=== PATIENT | female | born 1985 | race Caucasian/White ===

== ENCOUNTER → 2016-04-21 | Outpatient (CLI) | payer BC, OTHER ==
[~2016-04-21] MED LIST: ACET50TA PO; IBUP80TA PO; PRENTAB74 PO; SYNT175T2 PO
== END ==
LOC: M WUC 08:24
PROVIDERS: ATTEND Internal Medicine
DX: E03.9 Hypothyroidism, unspecified (principal)

== ENCOUNTER → 2016-08-15 | Outpatient (CLI) | payer BC, OTHER ==
[2016-08-15 11:50] LABS: BASO % 0.3 % (0.0-1.0); EOS # 0.1 K/mm3 (0.0-0.50); EOS % 2.7 % (0.0-3.0); LARGE UNSTAINED CELL # 0.1 K/mm3 (0.0-0.4); LARGE UNSTAINED CELL % 2.8 % (0.0-4.0); LYMPH # 1.2 K/mm3 (1.5-6.5); LYMPH % 27.3 % (24.0-44.0); MEAN CORPUSCULAR HEMOGLOBIN 28.7 pg (27.0-33.0); MEAN CORPUSCULAR HGB CONC 32.7 g/dl (32.0-36.5); MEAN CORPUSCULAR VOLUME 87.6 fl (80.0-96.0); MONO # 0.4 K/mm3 (0.0-0.8); MONO % 8.4 % (0.0-5.0); NEUTROPHILS # 2.6 K/mm3 (1.8-7.7); NEUTROPHILS % 58.5 % (36.0-66.0); PLATELET COUNT, AUTOMATED 274 k/mm3 (150-450); WHITE BLOOD COUNT 4.4 K/mm3 (4.0-10.0)
[2016-08-15 12:17] LABS: ALBUMIN 3.7 GM/DL (3.2-5.2); ALBUMIN/GLOBULIN RATIO 1.12 (1.00-1.93); ALKALINE PHOSPHATASE 74 U/L (45-117); ALT/SGPT 28 U/L (12-78); ANION GAP 5 MEQ/L (8-16); AST/SGOT 15 U/L (15-37); BILIRUBIN,TOTAL 0.4 MG/DL (0.2-1.0); BLOOD UREA NITROGEN 9 MG/DL (7-18); CARBON DIOXIDE LEVEL 31 MEQ/L (21-32); CHLORIDE LEVEL 103 MEQ/L (98-107); CREATININE FOR GFR 0.67 MG/DL (0.55-1.02); FERRITIN 18 NG/ML (8-252); GLOMERULAR FILTRATION RATE > 60.0 (>60); GLUCOSE, FASTING 72 MG/DL (70-105); PERCENT SATURATION 14.4 % (13.2-37.4); PHOSPHORUS LEVEL 2.3 MG/DL (2.5-4.9); POTASSIUM SERUM 4.5 MEQ/L (3.5-5.1); SODIUM LEVEL 139 MEQ/L (136-145); TOTAL IRON BINDING CAPACITY 305 UG/DL (250-450)
[2016-08-15 12:19] LABS: VITAMIN B12 LEVEL 1007 PG/ML (247-911)
[2016-08-18 10:51] LABS: PRETREATED FOLATE FOR RBCFOL 9.3 NG/ML
== END ==
LOC: M WUC 10:12
PROVIDERS: ATTEND Surgery
DX: K91.2 Postsurgical malabsorption, not elsewhere classified (principal); Z98.84 Bariatric surgery status

== ENCOUNTER → 2016-09-13 | Outpatient (CLI) | payer BC, OTHER ==
[2016-09-13 13:14] LABS: CONTROL LINE HCG INT CTR LINE PRESENT
[2016-09-13 15:43] LABS: HCG, SERUM QUANTITATIVE 1663 MIU/ML
== END ==
LOC: M WUC 09:03
PROVIDERS: ATTEND Family Medicine
DX: Z36 Encounter for antenatal screening of mother (principal); Z3A.00 Weeks of gestation of pregnancy not specified; O24.919 Unspecified diabetes mellitus in pregnancy, unspecified trimester; O99.280 Endocrine, nutritional and metabolic diseases complicating pregnancy, unspecified trimester; E03.9 Hypothyroidism, unspecified

== ENCOUNTER → 2016-10-10 | Outpatient (CLI) | payer BC, OTHER ==
[2016-10-10 20:00] LABS: FREE T4 1.19 NG/DL (0.76-1.46)
[2016-10-10 20:39] LABS: BASO % 0.2 % (0.0-1.0); EOS # 0.1 K/mm3 (0.0-0.50); LARGE UNSTAINED CELL # 0.1 K/mm3 (0.0-0.4); LARGE UNSTAINED CELL % 1.9 % (0.0-4.0); LYMPH # 1.6 K/mm3 (1.5-6.5); LYMPH % 25.4 % (24.0-44.0); MEAN CORPUSCULAR HEMOGLOBIN 28.8 pg (27.0-33.0); MEAN CORPUSCULAR HGB CONC 33.1 g/dl (32.0-36.5); MONO # 0.4 K/mm3 (0.0-0.8); MONO % 6.9 % (0.0-5.0); NEUTROPHILS # 3.8 K/mm3 (1.8-7.7); NEUTROPHILS % 63.6 % (36.0-66.0); PLATELET COUNT, AUTOMATED 251 k/mm3 (150-450); RED CELL DISTRIBUTION WIDTH 13.6 % (11.5-14.5)
[2016-10-11 09:35] LABS: HBsAg Prenatal NEGATIVE (NEGATIVE)
== END ==
LOC: M WUC 16:46
PROVIDERS: ATTEND Specialist
DX: Z36 Encounter for antenatal screening of mother (principal); Z3A.00 Weeks of gestation of pregnancy not specified

== ENCOUNTER → 2016-10-27 | Outpatient (CLI) | payer BC, OTHER ==
[~2016-10-27] MED LIST changes: +LIDOCAINE 2% INJ 100 MG/5 ML SDV (FOR ANES.) As Ordered ONE; +METHYLERGONOVINE MALEATE 0.2 MG/ML VIAL (J2210) As Ordered ONE; +MIDAZOLAM INJ 2 MG/2 ML VIAL (J2250) As Ordered ONE; +ONDANSETRON 4MG/2ML VIAL (J2405) As Ordered ONE; +OXYTOCIN INJ 10 UNITS/ML VIAL (J2590) As Ordered ONE; +PROPOFOL 200 MG/20 ML VIAL As Ordered ONE; +dexameTHASONE 4 MG/ML 1ML VIAL (J1100) As Ordered ONE; +ePHEDrine SULFATE 25 MG/5 ML(5MG/ML) SYRINGE As Ordered ONE; +fentaNYL 100 MCG/2 ML INJECTION (J3010) As Ordered ONE
--- NOTE | 2016-10-27 15:29 | REP ---
FIRST TRIMESTER ULTRASOUND: Real-time sonographic evaluation of the gravid uterus is performed. There is an intrauterine gestational sac which contains a pole, the crown rump length of 39 mm, corresponding to an estimated gestational age of 10 weeks 6 days. No heart motion is seen. The findings are consistent with intrauterine demise. Signed by Pato Carmona MD 10/27/2016 05:14 P
== END ==
LOC: M RAD 14:21
PROVIDERS: ATTEND Advanced Practice Midwife
DX: O36.4XX0 Maternal care for intrauterine death, not applicable or unspecified (principal); Z3A.10 10 weeks gestation of pregnancy

== ENCOUNTER 2016-10-28 06:37 | Day surgery (SDC) | payer BC, OTHER ==
[~2016-10-28] VITALS: Ht 165.1 cm; Wt 68.2 kg
[~2016-10-28 06:37] MED LIST changes: -LIDOCAINE 2% INJ 100 MG/5 ML SDV (FOR ANES.) As Ordered ONE; -METHYLERGONOVINE MALEATE 0.2 MG/ML VIAL (J2210) As Ordered ONE; -MIDAZOLAM INJ 2 MG/2 ML VIAL (J2250) As Ordered ONE; -ONDANSETRON 4MG/2ML VIAL (J2405) As Ordered ONE; -OXYTOCIN INJ 10 UNITS/ML VIAL (J2590) As Ordered ONE; -PROPOFOL 200 MG/20 ML VIAL As Ordered ONE; -dexameTHASONE 4 MG/ML 1ML VIAL (J1100) As Ordered ONE; -ePHEDrine SULFATE 25 MG/5 ML(5MG/ML) SYRINGE As Ordered ONE; -fentaNYL 100 MCG/2 ML INJECTION (J3010) As Ordered ONE
[2016-10-28 07:45] VITALS: BP 106/61
[2016-10-28] MEDS ORDERED: ONDANSETRON 4MG/2ML VIAL (J2405) As Ordered ONE (09:37)
[2016-10-28] MEDS ORDERED: KETOROLAC 30 MG/ML VIAL (J1885) As Ordered ONE (09:50)
[2016-10-28] MEDS ORDERED: fentaNYL 100 MCG/2 ML INJECTION (J3010) IV PRN (10:00)
[2016-10-28] MEDS ORDERED: ONDANSETRON 4MG/2ML VIAL (J2405) IV PRN (10:00)
[2016-10-28] MEDS ORDERED: KETOROLAC 30 MG/ML VIAL (J1885) IV SCH (10:00)
[2016-10-28] MEDS ORDERED: PERCOCET 5MG/325MG TAB PO PRN (10:00)
[2016-10-28] MEDS ORDERED: LR 1,000 ML IV SCH (10:00)
[2016-10-28 10:20] VITALS: BP 98/57
[2016-10-28 10:24] LABS: MEAN CORPUSCULAR HEMOGLOBIN 29.4 pg (27.0-33.0); MEAN CORPUSCULAR HGB CONC 33.6 g/dl (32.0-36.5); MEAN CORPUSCULAR VOLUME 87.7 fl (80.0-96.0); RED CELL DISTRIBUTION WIDTH 13.9 % (11.5-14.5)
[2016-10-28 10:50] VITALS: BP 101/57
[2016-10-28 11:50] VITALS: BP 99/60
[2016-10-28 12:50] VITALS: BP 107/58
--- NOTE | 2016-10-29 07:16 | RO ---
DATE OF PROCEDURE: 10/28/2016 PREPROCEDURE DIAGNOSIS: Intrauterine embryonic demise at 10 weeks 6 days. POSTPROCEDURE DIAGNOSIS: Intrauterine embryonic demise at 10 weeks 6 days. PROCEDURE: Dilation with sharp and suction curettage. SURGEON: Xin Barbosa MD ELECTRONICS TECHNOLOGY DEPARTMENT CHAIR: None. ANESTHESIA: General endotracheal anesthesia. ESTIMATED BLOOD LOSS: 1000 mL. URINE OUTPUT: 50 mL. INTRAVENOUS FLUIDS: 900 mL of lactated Ringer's solution. SPECIMENS: Intrauterine curettings. PREOPERATIVE ANTIBIOTICS: None. OPERATIVE FINDINGS: The patient was sounded to approximately 14 cm. During the procedure, there was large amounts of tissue with brisk bleeding. DESCRIPTION OF PROCEDURE: After informed consent was obtained, written consent was reviewed, the patient was brought to the operating room where general endotracheal anesthesia was obtained. She was then placed in the lithotomy position and was prepped and draped in the normal sterile fashion. A time-out in the operating room was then performed, identifying the patient, procedure to be performed, as well as drug allergies. A bivalve speculum was then placed revealing the cervix. The cervix was then sounded to approximately 14 cm. The cervix was then sequentially dilated using a combination of Hanks dilators as well as Hegar dilators. A #12 uterine curette was then advanced through the cervical os to the level of the fundus. This was attached to suction, suction was deployed and the uterus was curetted in a 360-degree fashion. Large amounts of tissue were obtained. This was repeated approximately six times with larger brisk bleeding at which time the patient was given a combination of 0.2 mg of Methergine IM, as well as 20 units of IV Pitocin. A sharp curette was then advanced through the cervical os to the level of the fundus and the uterus was curetted in a 360-degree fashion. A final two additional passes with the suction curette was then performed, productive only of minimal amounts of blood at this time. Instruments were removed from the patient's vagina, tenaculum was removed from the cervix, Monsel was applied over tenaculum sites for hemostasis. Speculum was then removed. In-and-out catheter was then performed productive of 50 mL of clear urine. The patient was then taken out of the lithotomy position, was awakened from general anesthesia and taken to recovery in stable condition. Counts were correct. MTDD
== END 2016-10-28 13:40 | disposition home or self-care (01) ==
LOC: M SDC 06:37 → M PED 06:50 → M SDC 13:40
PROVIDERS: ATTEND Obstetrics & Gynecology
DX: O02.1 Missed abortion (principal); E03.9 Hypothyroidism, unspecified
CPT/HCPCS: 36415; 59820; 85027; 88305; J1100; J1885; J2210; J2250; J2405; J2590; J3010

== ENCOUNTER → 2017-01-26 | Outpatient (CLI) | payer BC, OTHER ==
[2017-01-26 17:40] LABS: BASO % 0.3 % (0.0-1.0); EOS % 0.4 % (0.0-3.0); IMMATURE GRANULOCYTE % 0.1 % (0-0); LYMPH # 1.1 10^3/uL (1.5-6.5); LYMPH % 15.3 % (24.0-44.0); MEAN CORPUSCULAR HEMOGLOBIN 24.3 pg (27.0-33.0); MEAN CORPUSCULAR HGB CONC 30.3 g/dl (32.0-36.5); MONO # 0.8 10^3/uL (0.0-0.8); MONO % 10.7 % (0.0-5.0); NEUTROPHILS # 5.4 10^3/uL (1.8-7.7); NEUTROPHILS % 73.2 % (36.0-66.0); PLATELET COUNT, AUTOMATED 209 10^3/uL (150-450); RED CELL DISTRIBUTION WIDTH 16.1 % (11.5-14.5); WHITE BLOOD COUNT 7.3 10^3/uL (4.0-10.0)
[2017-01-26 18:27] LABS: ALBUMIN 3.8 GM/DL (3.2-5.2); ALBUMIN/GLOBULIN RATIO 1.19 (1.00-1.93); ALKALINE PHOSPHATASE 84 U/L (45-117); ALT/SGPT 30 U/L (12-78); ANION GAP 7 MEQ/L (8-16); AST/SGOT 17 U/L (7-37); BILIRUBIN,TOTAL 0.5 MG/DL (0.2-1.0); BLOOD UREA NITROGEN 9 MG/DL (7-18); CALCIUM LEVEL 8.9 MG/DL (8.5-10.1); CARBON DIOXIDE LEVEL 31 MEQ/L (21-32); CHLORIDE LEVEL 104 MEQ/L (98-107); CREATININE FOR GFR 0.64 MG/DL (0.55-1.02); FERRITIN 7 NG/ML (8-252); GLOMERULAR FILTRATION RATE > 60.0 (>60); GLUCOSE, FASTING 84 MG/DL (70-105); PERCENT SATURATION 13.2 % (13.2-45.0); PHOSPHORUS LEVEL 3.6 MG/DL (2.5-4.9); POTASSIUM SERUM 3.9 MEQ/L (3.5-5.1); SODIUM LEVEL 142 MEQ/L (136-145); TOTAL IRON BINDING CAPACITY 386 UG/DL (250-450)
[2017-01-29 10:44] LABS: VITAMIN B12 LEVEL 1365 PG/ML (247-911)
[2017-01-30 11:09] LABS: PRETREATED FOLATE FOR RBCFOL 14.6 NG/ML
== END ==
LOC: M WUC 10:14
PROVIDERS: ATTEND Surgery
DX: K91.2 Postsurgical malabsorption, not elsewhere classified (principal); Z98.84 Bariatric surgery status; E55.9 Vitamin D deficiency, unspecified

== ENCOUNTER → 2017-03-22 | Outpatient (CLI) | payer OTHER, BC | LOC: M WUC 15:53 | DX: E03.9 Hypothyroidism, unspecified (principal); D64.9 Anemia, unspecified | CPT/HCPCS: 84443 ==

== ENCOUNTER → 2017-08-27 | Outpatient (CLI) | payer OTHER, BC ==
[2017-08-28 07:26] LABS: HCG, SERUM QUANTITATIVE 154 MIU/ML
== END ==
LOC: M WUC 11:19
DX: Z32.01 Encounter for pregnancy test, result positive (principal)
CPT/HCPCS: 84702

== ENCOUNTER → 2017-08-29 | Outpatient (CLI) | payer OTHER, BC ==
[2017-08-29 15:45] LABS: HCG, SERUM QUANTITATIVE 321 MIU/ML
== END ==
LOC: M WUC 11:22
DX: Z32.01 Encounter for pregnancy test, result positive (principal)

== ENCOUNTER → 2017-09-13 | Outpatient (CLI) | payer OTHER, BC ==
[2017-09-13 19:46] LABS: BASO % 0.5 % (0.0-1.0); EOS # 0.2 10^3/uL (0.0-0.50); EOS % 2.8 % (0.0-3.0); HEMATOCRIT 34.7 % (36.0-47.0); HEMOGLOBIN 11.9 g/dl (12.0-15.5); IMMATURE GRANULOCYTE % 0.2 % (0-3.0); LYMPH # 1.7 10^3/uL (1.5-4.5); LYMPH % 28.8 % (24.0-44.0); MEAN CORPUSCULAR HEMOGLOBIN 29.6 pg (27.0-33.0); MEAN CORPUSCULAR HGB CONC 34.3 g/dl (32.0-36.5); MEAN CORPUSCULAR VOLUME 86.3 fl (80.0-96.0); MONO # 0.7 10^3/uL (0.0-0.8); MONO % 10.8 % (0.0-5.0); NEUTROPHILS # 3.4 10^3/uL (1.8-7.7); NEUTROPHILS % 56.9 % (36.0-66.0); PLATELET COUNT, AUTOMATED 202 10^3/uL (150-450); RED BLOOD COUNT 4.02 10^6/uL (4.00-5.40); RED CELL DISTRIBUTION WIDTH 12.9 % (11.5-14.5)
[2017-09-13 20:01] LABS: FREE T4 1.06 NG/DL (0.76-1.46)
[2017-09-13 22:18] LABS: CHLAMYDIA DNA AMPLIFICATION NEGATIVE (NEGATIVE); GC DNA AMPLIFICATION NEGATIVE (NEGATIVE)
[2017-09-14 09:26] LABS: RUBELLA IgG QUALITATIVE IMMUNE (IMMUNE)
[2017-09-14 09:42] LABS: HBsAg Prenatal NEGATIVE (NEGATIVE)
[2017-09-14 09:55] LABS: HEPATITIS C VIRUS ABY INDEX 0.1 INDEX (<0.8)
[2017-09-14 09:56] LABS: HIV 1&2 SCREEN CENTAUR NEGATIVE (NEGATIVE)
== END ==
LOC: M WUC 17:29
DX: Z34.81 Encounter for supervision of other normal pregnancy, first trimester (principal); Z3A.01 Less than 8 weeks gestation of pregnancy
CPT/HCPCS: 84443

== ENCOUNTER → 2017-10-18 | Outpatient (CLI) | payer OTHER, BC ==
[2017-10-18 15:08] LABS: FREE T4 0.97 NG/DL (0.76-1.46)
== END ==
LOC: M WUC 11:39
DX: Z34.81 Encounter for supervision of other normal pregnancy, first trimester (principal); Z36.89 Encounter for other specified antenatal screening
CPT/HCPCS: 84443

== ENCOUNTER 2017-11-17 20:47 | Emergency (ER) | payer BC, OTHER ==
[2017-11-17 22:58] LABS: CALCIUM OXALATE CRYSTALS RFX SMALL; KETONE, URINE AUTO RFX NEGATIVE (NEGATIVE); NITRITE, URINE AUTO RFX NEGATIVE (NEGATIVE); RBC, URINE AUTO RFX 2 /HPF (0-3); SQUAM EPITHELIAL CELL UR AURFX 6 /HPF (0-6); WBC, URINE AUTO RFX 2 /HPF (0-3)
[2017-11-17 22:59] LABS: LEUKOCYTE ESTERASE UR AUTO RFX TRACE (NEGATIVE)
== END 2017-11-17 22:38 | disposition home or self-care (01) ==
LOC: M ED 20:47
DX: O9A.212 Injury, poisoning and certain other consequences of external causes complicating pregnancy, second trimester (principal); W21.01XA Struck by football, initial encounter; Y92.9 Unspecified place or not applicable; Y93.9 Activity, unspecified; Y99.9 Unspecified external cause status; O99.282 Endocrine, nutritional and metabolic diseases complicating pregnancy, second trimester; Z98.84 Bariatric surgery status; Z79.82 Long term (current) use of aspirin; Z79.899 Other long term (current) drug therapy; Z88.0 Allergy status to penicillin
CPT/HCPCS: 76815

== ENCOUNTER → 2017-11-20 | Outpatient (CLI) | payer OTHER, BC ==
[2017-11-20 17:00] LABS: FREE T4 1.15 NG/DL (0.76-1.46)
== END ==
LOC: M WUC 13:13
DX: Z34.81 Encounter for supervision of other normal pregnancy, first trimester (principal); E03.9 Hypothyroidism, unspecified
CPT/HCPCS: 84443

== ENCOUNTER → 2017-12-07 | Outpatient (CLI) | payer BC, OTHER | LOC: M RAD 11:30 | DX: Z34.82 Encounter for supervision of other normal pregnancy, second trimester (principal); Z36.89 Encounter for other specified antenatal screening; Z3A.19 19 weeks gestation of pregnancy | CPT/HCPCS: 76811 ==

== ENCOUNTER → 2017-12-17 | Outpatient (CLI) | payer OTHER, BC ==
[2017-12-17 14:30] LABS: FREE T4 1.17 NG/DL (0.76-1.46)
== END ==
LOC: M WUC 12:16
DX: O99.281 Endocrine, nutritional and metabolic diseases complicating pregnancy, first trimester (principal)

== ENCOUNTER → 2017-12-24 | Outpatient (CLI) | payer BC, OTHER | LOC: M RAD 17:37 | DX: Z34.82 Encounter for supervision of other normal pregnancy, second trimester (principal); Z36.89 Encounter for other specified antenatal screening; Z3A.22 22 weeks gestation of pregnancy | CPT/HCPCS: 76816 ==

== ENCOUNTER → 2018-01-11 | Outpatient (CLI) | payer BC, OTHER ==
[2018-01-11 13:39] LABS: HEMOGLOBIN 10.7 g/dl (12.0-15.5); MEAN CORPUSCULAR HEMOGLOBIN 31.9 pg (27.0-33.0); MEAN CORPUSCULAR HGB CONC 34.5 g/dl (32.0-36.5); MEAN CORPUSCULAR VOLUME 92.5 fl (80.0-96.0); PLATELET COUNT, AUTOMATED 211 10^3/uL (150-450); RED BLOOD COUNT 3.35 10^6/uL (4.00-5.40); RED CELL DISTRIBUTION WIDTH 13.9 % (11.5-14.5); WHITE BLOOD COUNT 7.1 10^3/uL (4.0-10.0)
[2018-01-11 15:19] LABS: FREE T4 1.07 NG/DL (0.76-1.46); THYROID STIMULATING HORMONE 0.627 uIU/ML (0.358-3.740)
== END ==
LOC: M WUC 12:13
DX: Z34.82 Encounter for supervision of other normal pregnancy, second trimester (principal); Z3A.00 Weeks of gestation of pregnancy not specified
CPT/HCPCS: 84443

== ENCOUNTER → 2018-01-21 | Outpatient (CLI) | payer BC, OTHER | LOC: M RAD 17:39 | DX: O32.1XX0 Maternal care for breech presentation, not applicable or unspecified (principal); Z36.89 Encounter for other specified antenatal screening; Z3A.26 26 weeks gestation of pregnancy | CPT/HCPCS: 76816 ==

== ENCOUNTER → 2018-02-16 | Outpatient (CLI) | payer BC, OTHER ==
[2018-02-16 11:02] LABS: FREE T4 1.11 NG/DL (0.76-1.46)
[2018-02-16 11:02] LABS: THYROID STIMULATING HORMONE 0.607 uIU/ML (0.358-3.740)
== END ==
LOC: M WUC 07:54
DX: O99.282 Endocrine, nutritional and metabolic diseases complicating pregnancy, second trimester (principal)
CPT/HCPCS: 84443

== ENCOUNTER 2018-03-21 10:42 | Inpatient (IN) | payer BC, OTHER ==
[2018-03-21] VITALS (22 sets, daily range): BP systolic 50–117; BP diastolic 32–70
[~2018-03-21] VITALS: Ht 165.1 cm; Wt 90.0 kg
[~2018-03-21 10:42] MED LIST changes: +ASPI81TA85 PO
[2018-03-21] MEDS ORDERED: LACTATED RINGER'S 1000 ML IV STA ×2 (11:22→14:42)
[2018-03-21] MEDS ORDERED: CALC500T36 PO (11:24)
[2018-03-21] MEDS ORDERED: CENTTAB47 PO (11:24)
[2018-03-21] MEDS ORDERED: VITA100072 PO (11:30)
[2018-03-21] MEDS ORDERED: D3400CAP PO (11:30)
[2018-03-21] MEDS ORDERED: CALC600T57 PO (11:30)
[2018-03-21] MEDS ORDERED: FERR325T3 PO ×3 (11:30→11:33)
[2018-03-21 11:56] LABS: PARTIAL THROMBOPLASTIN TIME 26.1 SECONDS (25.4-37.6); PROTHROMBIN TIME 13.2 SECONDS (12.1-14.4)
[2018-03-21] MEDS ORDERED: LR 1,000 ML IV SCH ×3 (12:00→16:15)
[2018-03-21 12:02] LABS: ALBUMIN 2.7 GM/DL (3.2-5.2); ALT/SGPT 21 U/L (12-78); BILIRUBIN,TOTAL 0.3 MG/DL (0.2-1.0); BLOOD UREA NITROGEN 10 MG/DL (7-18); CALCIUM LEVEL 8.2 MG/DL (8.5-10.1); CARBON DIOXIDE LEVEL 25 MEQ/L (21-32); CHLORIDE LEVEL 105 MEQ/L (98-107); CREATININE FOR GFR 0.52 MG/DL (0.55-1.30); GLOMERULAR FILTRATION RATE > 60.0 (>60); GLUCOSE, FASTING 149 MG/DL (70-100); SODIUM LEVEL 138 MEQ/L (136-145); TOTAL PROTEIN 6.2 GM/DL (6.4-8.2)
--- NOTE | 2018-03-21 12:07 | HPE ---
DATE OF ADMISSION: 03/21/2018 CHIEF COMPLAINT: Passing blood and clots. HISTORY OF PRESENT ILLNESS: Reena is a 32-year-old G3, P1-0-1-1 at 34 weeks 3 days estimated gestational age by last menstrual period of 07/23/2017 confirmed by first trimester ultrasound. Her estimated date of confinement is 04/29/2018. She is presenting today complaining of having a large gush of bloody fluid at work at approximately 10:30 a.m. this morning. She was seen in the office prior by Darcy Barrios, certified nurse joy loader, for appointment, and then reports that she was at work when she had her large gush of blood fluid. She states that her gush of blood was also filled with clots. She denies any contractions but states that she is feeling a lot of pressure, as well as some nausea and feeling hot. She is feeling baby move. LABS: The patient is A+, GBS unknown, rubella immune, HIV negative, hepatitis C nonreactive, gonorrhea negative, chlamydia negative, hepatitis B surface antigen negative, VDRL nonreactive. Diabetes screen was not done. She has gained 26 pounds during this . Blood pressures in the office have been ranging from 102-114 systolic over 60-68 diastolic. OB ULTRASOUND: Ultrasound done at bedside showed an anterior and fundal placenta with a blood clot that was inferior to the head, suspicious for placental abruption. Amniotic fluid level was normal and the baby was vertex. PAST OBSTETRICAL HISTORY: 1. In 2013, the patient delivered a male at 40 weeks and 5 via normal spontaneous vaginal delivery weighing 8 pounds, 8 ounces. She received a blood patch 6 weeks later. 2. February 17, 2017, patient had a miscarriage at 10 weeks 5 days estimated gestational age. PAST MEDICAL HISTORY: Hypothyroidism. Vitamin D deficiency. MEDICATIONS: vitamins Levothyroxine on 170 mcg daily PAST SURGICAL HISTORY: Danita n Y gastric bypass in 2016. Tonsillectomy and adenoidectomy, 2017. 2017 dilation and curettage. FAMILY HISTORY: Significant for heart disease, diabetes, breast cancer and hypothyroidism. ALLERGIES: PENICILLIN and AMOXICILLIN. SOCIAL HISTORY: The patient is . Denies tobacco, alcohol or drugs. EXAMINATION: Vitals: Heart rate 77, blood pressure 72/46, repeat was 50/32. Sterile vaginal exam: 2 cm dilated 50% effaced, -3 station. monitor: Category 1 tracing, baseline of 150s with moderate variability, positive back cells, no decelerations. [place]: No contractions. ASSESSMENT/PLAN: 1. Intrauterine (IUP) at 34 weeks 3 days estimated gestational age presenting for possible placental abruption. Admit to labor and delivery. OB ultrasound for VERONICA and placental abruption. Coagulation studies, CBC, and DIC labs ordered, as well as urine toxicology. 2. Group B strep (GBS) unknown. Will need prophylactic penicillin if vaginal delivery is eminent. 3. section if indicated. My faculty preceptor for this patient encounter was physically present during the encounter and was fully available. All aspects of the patient interview, examination, medical decision making process, and medical care plan development were reviewed and approved by the faculty preceptor. The faculty preceptor is aware and concurs with the plan as stated in the body of this note and will attest to such by his/her co-signature. ABDELRAHMAN
[2018-03-21 12:21] LABS: AMPHETAMINES URINE REFLEX NEGATIVE (NEGATIVE); BARBITURATES URINE REFLEX NEGATIVE (NEGATIVE); BENZODIAZEPINES URINE REFLEX NEGATIVE (NEGATIVE); CANNABINOIDS URINE REFLEX NEGATIVE (NEGATIVE); COCAINE METABOLITE URINE REFLE NEGATIVE (NEGATIVE); METHADONE URINE REFLEX NEGATIVE (NEGATIVE); OPIATES URINE REFLEX NEGATIVE (NEGATIVE); PHENCYCLIDINE URINE REFLEX NEGATIVE (NEGATIVE)
[2018-03-21 12:41] LABS: HEMATOCRIT 34.6 % (36.0-47.0); HEMOGLOBIN 11.9 g/dl (12.0-15.5); MEAN CORPUSCULAR HEMOGLOBIN 30.8 pg (27.0-33.0); MEAN CORPUSCULAR HGB CONC 34.4 g/dl (32.0-36.5); MEAN CORPUSCULAR VOLUME 89.6 fl (80.0-96.0); PLATELET COUNT, AUTOMATED 229 10^3/uL (150-450); RED BLOOD COUNT 3.86 10^6/uL (4.00-5.40); WHITE BLOOD COUNT 8.8 10^3/uL (4.0-10.0)
--- NOTE | 2018-03-21 13:42 | REP ---
OBSTETRIC SONOGRAPHY: HISTORY: Placental abruption at the 34 weeks. FINDINGS: Scanning demonstrates a viable single intrauterine gestation in a transverse, head to the maternal left lie. heart rate is recorded at 146 beats per minute. Amniotic fluid is subjectively normal. VERONICA is normal at the 19.0 cm. Biophysical profile score is 8 out of a possible 8. S/D ratio of the umbilical cord artery by Doppler is normal at 2.09. Closed cervical length is 4.8 cm. An anterior placenta is seen. There is no evidence of placenta previa. However, there is a large hematoma representing a placental abruption along the inferior edge of the placenta. This extends along the anterior margin of the uterus to cover the internal cervical os. The cervix is not dilated. The abruption measures 16.8 x 6.8 x 11.5 cm. IMPRESSION: Large anterior placental abruption 16.8 x 6.8 x 11.5 cm. The abruption covers the internal cervical os. Cervix is not dilated. A viable fetus biophysical profile score 8 out of a possible 8. Electronically Signed by Amandeep Johnson MD 03/21/2018 05:06 P
[2018-03-21] MEDS ORDERED: BICITRA 30ML SOLN UDC As Ordered ONE (14:42)
[2018-03-21] MEDS ORDERED: ceFAZolin 2 GM/D5W 50 ML IV BAG (J0690 PER 500MG) As Ordered ONE (14:42)
[2018-03-21] MEDS ORDERED: BICITRA 30ML SOLN UDC PO ONE (15:00)
[2018-03-21] MEDS ORDERED: ONDANSETRON 4MG/2ML VIAL (J2405) IV PRN ×3 (15:05→16:15)
[2018-03-21] MEDS ORDERED: diphenhydrAMINE INJ 50MG/ML VIAL (J1200) IV PRN (15:05)
[2018-03-21] MEDS ORDERED: NALOXONE INJ 0.4 MG/1 ML VIAL (J2310) IV PRN ×2 (15:05)
[2018-03-21] MEDS ORDERED: NALBUPHINE HCL 10 MG/ML AMP (J2300) IV PRN (15:05)
[2018-03-21] MEDS ORDERED: METOCLOPRAMIDE INJ 10MG/2ML VIAL (J2765) IV PRN (15:05)
[2018-03-21] MEDS ORDERED: MORPHINE PRES-FREE INJ 10 MG/10 ML VIAL (J2274) As Ordered ONE (15:09)
[2018-03-21] MEDS ORDERED: ONDANSETRON 4MG/2ML VIAL (J2405) As Ordered ONE (15:09)
[2018-03-21] MEDS ORDERED: OXYTOCIN INJ 10 UNITS/ML VIAL (J2590) As Ordered ONE ×2 (15:09→15:53)
[2018-03-21] MEDS ORDERED: KETOROLAC 60 MG/2 ML VIAL (J1885) As Ordered ONE (15:09)
[2018-03-21] MEDS ORDERED: ePHEDrine SULFATE 25 MG/5 ML(5MG/ML) SYRINGE As Ordered ONE (15:09)
[2018-03-21] MEDS ORDERED: PROPOFOL 200 MG/20 ML VIAL As Ordered ONE (15:30)
[2018-03-21] MEDS ORDERED: fentaNYL 100 MCG/2 ML INJECTION (J3010) As Ordered ONE (15:32)
[2018-03-21 15:47] LABS: CORD GAS ABE A -0.3; CORD GAS O2 SAT A 66.9 %; CORD GAS PCO2 A 43.5 mmHg; CORD GAS PH A 7.378 UNITS; CORD GAS PO2 A 27.1 mmHg; CORD GAS SBC A 23.4 MEQ/L; CORD GAS TCO2 A 26.4 MEQ/L
[2018-03-21 15:50] LABS: CORD GAS ABE V 0.6; CORD GAS O2 SAT V 85.4 %; CORD GAS PCO2 V 35.1 mmHg; CORD GAS PH V 7.452 UNITS; CORD GAS PO2 V 35.6 mmHg; CORD GAS SBC V 24.7 MEQ/L
[2018-03-21] MEDS ORDERED: PERCOCET 5MG/325MG TAB PO PRN (16:00)
[2018-03-21] MEDS ORDERED: RHOGAM 300 MCG (1500 IU) INJ (J2790) IM SCH (16:00)
[2018-03-21] MEDS ORDERED: MEASLES,MUMPS,RUBELLA VACCINE INJ (MMR-II) (90707) SC SCH (16:00)
[2018-03-21] MEDS ORDERED: OXYTOCIN DRIP 30 UNITS in APPROPRIATE DILUENT 1 EA IV SCH (16:00)
[2018-03-21] MEDS ORDERED: fentaNYL 100 MCG/2 ML INJECTION (J3010) IV PRN (16:15)
[2018-03-21] MEDS ORDERED: MORPHINE 10 MG/ML 1ML VIAL (J2270) IV PRN (16:15)
[2018-03-21] MEDS ORDERED: OXYTOCIN 30 UNITS IN 0.9% NaCl 500ML IV BAG (J2590) As Ordered ONE (16:25)
[2018-03-21] MEDS: PRENATAL VITAMINS CHEWABLE TABLET PO SCH (17:30)
[2018-03-21] MEDS ORDERED: MULTIVITAMINS/MINERALS THERAP 1 TAB PO ONE (17:30)
[2018-03-21] MEDS: LR 1,000 ML IV SCH (19:11)
[2018-03-21] MEDS ORDERED: PERC5TAB12 PO (20:25)
[2018-03-21] MEDS: DOCUSATE SODIUM 100 MG CAP PO SCH (20:42)
[2018-03-21] MEDS: KETOROLAC 30 MG/ML VIAL (J1885) IV SCH (20:44)
--- NOTE | 2018-03-21 20:55 | RO ---
DATE OF PROCEDURE: 03/21/2018 PREOPERATIVE DIAGNOSES: 34-3/7 weeks gestation, placental abruption. POSTOPERATIVE DIAGNOSES: 34-3/7 weeks gestation, placental abruption. PROCEDURE: Primary low transverse section. SURGEON: Rajesh Garza MD MACHINE SORTER: Nancy Orellana DO ANESTHESIA: Spinal. ESTIMATED BLOOD LOSS: 700 mL. URINE OUTPUT: 100 mL FINDINGS: 2686 gram, 5 pound 15 ounce male , Apgars 9 and 9. Transverse lie with head on maternal left. Large placental abruption noted, at least 25% of the placenta had detached from the uterus and there was approximately 400 mL of blood clot behind the placenta. The placental abruption was very low down and towards the lower uterine segment. Evidence of a [place] uterus with ecchymosis on the anterior lower uterine segment lower fundus. OPERATIVE SUMMARY: The patient was taken to the operating room where spinal anesthesia was induced. She was prepped and draped in sterile fashion in the supine position. A Costello catheter was placed. A Pfannenstiel skin incision was made with a scalpel and carried through to the fascia. The fascia was nicked and extended. The fascia was dissected off the rectus muscles. The peritoneal cavity was entered. A curvilinear incision was made in the lower uterine segment until a bulge of membranes were noted. A large amount of blood clot extruded from the hysterotomy incision. Membranes were ruptured and clear fluid noted. Baby was rotated from the transverse position to the vertex position and delivered at the vertex. Cord was doubly clamped and cut. The infant was handed off to awaiting fisheries technician. The placenta was expressed. The uterus exteriorized and cleared of clots and debris. Uterine incision was closed with #0 Vicryl in a running locked fashion. A second imbricated layer of #0 Vicryl was placed. The uterus was placed back in the abdominal cavity. The peritoneum was closed with #2-0 Vicryl in a running fashion. The fascia was closed with #0 Vicryl in a running fashion. The deep layer was irrigated and closed with #2-0 chromic. Skin was closed with #4-0 Monocryl subcuticular sutures. Sponge, instrument and needle counts correct.
[2018-03-21] MEDS ORDERED: VITAMIN D 1,000 INTERNATIONAL UNITS TABLET PO SCH (21:00)
[2018-03-21] MEDS: VITAMIN D 1,000 INTERNATIONAL UNITS TABLET PO SCH (21:25)
[2018-03-22 02:00] VITALS: BP 90/54
[2018-03-22] MEDS: KETOROLAC 30 MG/ML VIAL (J1885) IV SCH ×3 (02:30→13:52)
[2018-03-22] MEDS: LR 1,000 ML IV SCH ×2 (05:44→08:00)
[2018-03-22 05:46] VITALS: BP 85/54
[2018-03-22] MEDS: LEVOTHYROXINE 150MCG TABLET (0.15MG) PO SCH (05:48)
[2018-03-22] MEDS: LEVOTHYROXINE 25MCG TABLET (0.025MG) PO SCH (05:48)
--- NOTE | 2018-03-22 05:51 | IPNPDOC ---
Text Note Date of Service The patient was seen on 03/22/18. NOTE /Post-operative Day 1 Status post primary low transverse section Subjective Pain is controlled. Lochia decreasing. Passing flatus. Tolerating a regular diet. Ambulating without assistance. Denies any subjective fever/chills/nausea/headache/visual changes/shortness of breath/chest pain. Bottle feeding. Patient has had some mild dizziness upon standing. BP was 85/54, HR 65. Objective Vitals: Hypotensive, normal heart rate, afebrile, adequate urine output. Heart: regular, rate, and rhythm. no murmurs/gallops/rubs Lungs: clear to auscultation bilaterally, no wheezes/crackles/rales/ronchi Abd: obese, soft, nontender, nondistended, uterine fundus is at the umbilicus and firm. Ext: no significant edema, nontender, negative Tea's bilaterally. Assessment/Plan: /Post-operative Day 1. Hypotensive, afebrile, pain control adequate. -500 cc NS bolus -Routine care -Potential discharge Sunday if normotensive -Routine infectious, fever, pain, and bleeding precautions reviewed VS,Fishbone, I+O VS, Fishbone, I+O Laboratory Tests 03/21/18 11:18 Calcium Level 8.2 L, Aspartate Amino Transf (AST/SGOT) 14, Alanine Aminotransferase (ALT/SGPT) 21, Alkaline Phosphatase 122 H, Total Bilirubin 0.3, Total Protein 6.2 L, Albumin 2.7 L 03/21/18 11:34 Red Blood Count 3.86 L, Mean Corpuscular Volume 89.6, Mean Corpuscular Hemoglo bin 30.8, Mean Corpuscular Hemoglobin Concent 34.4, Red Cell Distribution Width 13.9 Vital Signs Date Time Temp Pulse Resp B/P (MAP) Pulse Ox O2 Delivery O2 Flow Rate FiO2 03/22/18 02:00 99.1 67 18 90/54 (66) 97 I&O- Last 24 Hours up to 6 AM 03/22/18 06:00 Intake Total 5350 ml Output Total 2130 ml Balance 3220 ml GME ATTESTATION GME ATTESTATION My faculty preceptor for this patient encounter was physically present during the encounter and was fully available. All aspects of the patient interview, examination, medical decision making process, and medical care plan development were reviewed and approved by the faculty preceptor. The faculty preceptor is aware and concurs with the plan as stated in the body of this note and will attest to such by his/her cosignature. DANG WEST DO Mar 22, 2018 05:51
[2018-03-22] MEDS ORDERED: NS 500 ML IV ONE (06:00)
[2018-03-22 06:23] VITALS: BP 92/56
[2018-03-22 06:42] LABS: HEMATOCRIT 23.7 % (36.0-47.0); MEAN CORPUSCULAR HEMOGLOBIN 31.1 pg (27.0-33.0); MEAN CORPUSCULAR HGB CONC 34.6 g/dl (32.0-36.5); MEAN CORPUSCULAR VOLUME 89.8 fl (80.0-96.0); PLATELET COUNT, AUTOMATED 160 10^3/uL (150-450); RED BLOOD COUNT 2.64 10^6/uL (4.00-5.40); WHITE BLOOD COUNT 11.7 10^3/uL (4.0-10.0)
[2018-03-22 06:49] LABS: HEMOGLOBIN 8.2 g/dl (12.0-15.5)
[2018-03-22] MEDS: DOCUSATE SODIUM 100 MG CAP PO SCH ×2 (08:48→21:00)
[2018-03-22] MEDS ORDERED: PRENATAL VITAMINS CHEWABLE TABLET PO SCH (09:00)
[2018-03-22] MEDS: CALCIUM CITRATE PO SCH ×2 (10:35→20:54)
[2018-03-22] MEDS: D3 PO SCH ×2 (10:35→20:54)
[2018-03-22] MEDS ORDERED: FERROUS SULFATE 325MG TAB PO SCH (11:00)
[2018-03-22 14:00] VITALS: BP 100/54
[2018-03-22] MEDS: PRENATAL VITAMINS CHEWABLE TABLET PO SCH (17:16)
[2018-03-22] MEDS: MULTIVITAMINS/MINERALS THERAP 1 TAB PO SCH (17:18)
[2018-03-22] MEDS ORDERED: IBUPROFEN 800 MG TAB PO SCH (18:00)
[2018-03-22 18:44] VITALS: BP 111/62
[2018-03-22] MEDS: PERCOCET 5MG/325MG TAB PO PRN (19:17)
[2018-03-22] MEDS: VITAMIN D 1,000 INTERNATIONAL UNITS TABLET PO SCH (20:54)
[2018-03-22] MEDS ORDERED: CYANOCOBALAMIN 500 MCG TAB PO SCH (21:00)
[2018-03-22 22:00] VITALS: BP 97/53
[2018-03-23] MEDS: LEVOTHYROXINE 25MCG TABLET (0.025MG) PO SCH (05:40)
[2018-03-23] MEDS: LEVOTHYROXINE 150MCG TABLET (0.15MG) PO SCH (05:40)
[2018-03-23 05:56] VITALS: BP 113/62
[2018-03-23] MEDS: FERROUS SULFATE 325MG TAB PO SCH (08:44)
[2018-03-23] MEDS: DOCUSATE SODIUM 100 MG CAP PO SCH ×2 (08:47→20:52)
[2018-03-23] MEDS ORDERED: ACETAMINOPHEN 500 MG TAB PO PRN (09:00)
[2018-03-23] MEDS: D3 PO SCH ×2 (10:29→20:52)
[2018-03-23] MEDS: CALCIUM CITRATE PO SCH ×2 (10:29→20:52)
[2018-03-23] MEDS: MULTIVITAMINS/MINERALS THERAP 1 TAB PO SCH (17:24)
[2018-03-23] MEDS: PRENATAL VITAMINS CHEWABLE TABLET PO SCH (17:24)
[2018-03-23 18:02] VITALS: BP 105/63
[2018-03-23] MEDS: VITAMIN D 1,000 INTERNATIONAL UNITS TABLET PO SCH (20:52)
[2018-03-23] MEDS: PERCOCET 5MG/325MG TAB PO PRN (20:53)
--- NOTE | 2018-03-23 22:07 | NUR ---
Progress Note POD#2 s/p LTCS for placental abruption with non-reassuring status. Baby in NICU; improving/doing well. Pain well controlled, voiding spontaneously, ambulating, tolerating PO, lochia decreasing/minimal VSS, normotensive, afebrile, adequate UOP H: RRR no m/g/r L: CTA b/l no w/c/r/r Abd: soft,nt,nd, incision c/d/i Ext: no c/c/e A/P: POD#2, recovering appropriately. Hemodynamically stable, afebrile, good pain control. -Routine postop care -Anticipate d/c tomorrow AM. Usha Laughlin DO
[2018-03-24] MEDS: LEVOTHYROXINE 25MCG TABLET (0.025MG) PO SCH (05:46)
[2018-03-24] MEDS: LEVOTHYROXINE 150MCG TABLET (0.15MG) PO SCH (05:46)
[2018-03-24 06:15] VITALS: BP 115/78
[2018-03-24] MEDS: FERROUS SULFATE 325MG TAB PO SCH (08:59)
[2018-03-24] MEDS: DOCUSATE SODIUM 100 MG CAP PO SCH (08:59)
[2018-03-24] MEDS ORDERED: ACET-683 PO (10:21)
[2018-03-24] MEDS ORDERED: COLA100C5 PO (10:21)
--- NOTE | 2018-03-24 10:27 | NUR ---
Discharge Summary Date of admission: 03/21/2018 Date of discharge: 03/24/2018 Admitting diagnosis: 34 weeks and 3 days gestation. Placental abruption. Discharge diagnosis: Status post primary low transverse section. Single, liveborn delivered via . Indication: Placental abruption, nonreassuring status. Discharge Summary: 33 year-old G3 now P2012. She was admitted on 03/21/2018 at 34+3 weeks EGA with a diagnosis of placental abruption.. This prompted an unscheduled delivery. The delivery was uncomplicated. The patient's intraoperative and postoperative courses were uncomplicated. By postoperative day #3, the patient was meeting all discharge criteria. Her pain was well controlled on oral pain meds. She was ambulating without assistance, voiding spontaneously, tolerating a regular diet, and her lochia/bleeding was minimal. She was noted to have mild anemia, but asymptomatic. Physical exam on date of discharge: Vitals: normotensive, normal HR, afebrile Heart: regular rate and rhythm with no murmurs, gallops, rubs. Lungs: clear to auscultation bilaterally, no wheezes, crackles, rales, ronchi Abd: soft, non-distended, appropriately tender. Normoactive bowel sounds. Incision: clean, dry, intact without surrounding erythema or induration. Ext: non-edematous, non-tender, negative Tea's sign bilaterally Assessment/Plan: 33 year-old G3 now P2012 status post primary low transverse delivery on 03/21/2018 now postoperative day #3. Hemodynamically stable, afebrile, with good pain control. Meeting all discharge criteria. -Routine infectious, fever, pain, and bleeding precautions reviewed -Surgical wound/incisional care / precautions reviewed. -Discharge medications: Percocet, Motrin, Colace. -Outpatient follow up in 1-2 weeks for a routine incision / postoperative check. Dr. Jaya Laughlin, DO, FACOG
[2018-03-24] MEDS: D3 PO SCH (10:50)
[2018-03-24] MEDS: CALCIUM CITRATE PO SCH (10:50)
== END 2018-03-24 11:00 | disposition home or self-care (01) | DRG 540 ==
LOC: M LDO 10:42 → M LDI 10:48 → M OBS 17:50
PROVIDERS: ADMIT Specialist; ATTEND Specialist
PROC: 10D00Z1 Extraction of Products of Conception, Low, Open Approach (ICD-10-PCS; principal; 2018-03-21 14:56)
DX: O45.8X3 Other premature separation of placenta, third trimester (principal); Z3A.34 34 weeks gestation of pregnancy; O99.283 Endocrine, nutritional and metabolic diseases complicating pregnancy, third trimester; E03.9 Hypothyroidism, unspecified; O99.844 Bariatric surgery status complicating childbirth; O32.2XX0 Maternal care for transverse and oblique lie, not applicable or unspecified; O76 Abnormality in fetal heart rate and rhythm complicating labor and delivery; Z37.0 Single live birth

== ENCOUNTER → 2018-08-28 | Outpatient (CLI) | payer OTHER, BC ==
[~2018-08-28] MED LIST changes: +ACET-683 PO; -ACET50TA PO; +CALC12504 PO; +CALC600T57 PO; +CENTTAB47 PO; +COLA100C5 PO; +D3400CAP PO; +FERR325T3 PO; +MAPA500T17 PO; +PERC5TAB12 PO; +VITA100018 PO
== END ==
LOC: M WUC 10:32
PROVIDERS: ATTEND Internal Medicine
DX: E03.9 Hypothyroidism, unspecified (principal)

== ENCOUNTER → 2018-12-14 | Outpatient (CLI) | payer OTHER, BC ==
[~2018-12-14] MED LIST changes: -CALC12504 PO; +CALC500T61 PO
[2018-12-14 18:38] LABS: BASO % 0.6 % (0.0-1.0); EOS # 0.1 10^3/uL (0.0-0.5); EOS % 1.7 % (0.0-3.0); HEMATOCRIT 35.8 % (36.0-47.0); HEMOGLOBIN 11.4 g/dl (12.0-15.5); LYMPH # 1.5 10^3/uL (1.5-5.0); LYMPH % 30.8 % (24.0-44.0); MEAN CORPUSCULAR HEMOGLOBIN 27.3 pg (27.0-33.0); MEAN CORPUSCULAR HGB CONC 31.8 g/dl (32.0-36.5); MEAN CORPUSCULAR VOLUME 85.6 fl (80.0-96.0); MONO # 0.6 10^3/uL (0.0-0.8); MONO % 11.8 % (0.0-5.0); NEUTROPHILS # 2.6 10^3/uL (1.5-8.5); NEUTROPHILS % 54.9 % (36.0-66.0); PLATELET COUNT, AUTOMATED 262 10^3/uL (150-450); RED BLOOD COUNT 4.18 10^6/uL (4.00-5.40); WHITE BLOOD COUNT 4.7 10^3/uL (4.0-10.0)
[2018-12-14 19:09] LABS: ALBUMIN 3.8 GM/DL (3.2-5.2); ALT/SGPT 28 U/L (12-78); BILIRUBIN,TOTAL 0.3 MG/DL (0.2-1.0); BLOOD UREA NITROGEN 17 MG/DL (7-18); CARBON DIOXIDE LEVEL 30 MEQ/L (21-32); CHLORIDE LEVEL 105 MEQ/L (98-107); CREATININE FOR GFR 0.73 MG/DL (0.55-1.30); FERRITIN 7 NG/ML (8-252); FREE T4 1.04 NG/DL (0.76-1.46); GLOMERULAR FILTRATION RATE > 60.0 (>60); GLUCOSE, FASTING 76 MG/DL (70-100); IRON (FE) 36 UG/DL (50-170); POTASSIUM SERUM 4.3 MEQ/L (3.5-5.1); SODIUM LEVEL 141 MEQ/L (136-145); THYROID STIMULATING HORMONE 0.817 uIU/ML (0.358-3.740); TOTAL IRON BINDING CAPACITY 400 UG/DL (250-450); TOTAL PROTEIN 7.2 GM/DL (6.4-8.2)
[2018-12-16 10:32] LABS: TOTAL 25(OH) VITAMIN D 40.1 NG/ML (30.0-100.0); VITAMIN B12 LEVEL 813 PG/ML (247-911)
[2018-12-16 10:33] LABS: FOLATE 15.2 NG/ML (>5.4)
== END ==
LOC: M WUC 16:15
PROVIDERS: ATTEND Physician Assistant
DX: D50.9 Iron deficiency anemia, unspecified (principal); E03.9 Hypothyroidism, unspecified; Z98.84 Bariatric surgery status

== ENCOUNTER → 2019-05-19 | Outpatient (CLI) | payer OTHER, BC ==
[2019-05-19 10:52] LABS: BASO % 0.5 % (0.0-1.0); EOS # 0.2 10^3/uL (0.0-0.5); EOS % 2.7 % (0.0-3.0); HEMATOCRIT 40.1 % (36.0-47.0); HEMOGLOBIN 12.5 g/dl (12.0-15.5); LYMPH # 1.3 10^3/uL (1.5-5.0); LYMPH % 22.7 % (24.0-44.0); MEAN CORPUSCULAR HEMOGLOBIN 26.6 pg (27.0-33.0); MEAN CORPUSCULAR HGB CONC 31.2 g/dl (32.0-36.5); MEAN CORPUSCULAR VOLUME 85.3 fl (80.0-96.0); MONO # 0.8 10^3/uL (0.0-0.8); MONO % 14.4 % (0.0-5.0); NEUTROPHILS # 3.3 10^3/uL (1.5-8.5); NEUTROPHILS % 59.5 % (36.0-66.0); PLATELET COUNT, AUTOMATED 281 10^3/uL (150-450); WHITE BLOOD COUNT 5.5 10^3/uL (4.0-10.0)
[2019-05-19 11:32] LABS: ALBUMIN 3.8 GM/DL (3.2-5.2); ALT/SGPT 56 U/L (12-78); BILIRUBIN,TOTAL 0.3 MG/DL (0.2-1.0); BLOOD UREA NITROGEN 13 MG/DL (7-18); CALCIUM LEVEL 9.2 MG/DL (8.5-10.1); CARBON DIOXIDE LEVEL 31 MEQ/L (21-32); CHLORIDE LEVEL 103 MEQ/L (98-107); CREATININE FOR GFR 0.72 MG/DL (0.55-1.30); FERRITIN 4 NG/ML (8-252); FOLATE 16.7 NG/ML; FREE T4 1.07 NG/DL (0.76-1.46); GLOMERULAR FILTRATION RATE > 60.0 (>60); GLUCOSE, FASTING 54 MG/DL (70-100); IRON (FE) 42 UG/DL (50-170); MAGNESIUM LEVEL 2.3 MG/DL (1.8-2.4); PERCENT SATURATION 9.5 % (13.2-45.0); POTASSIUM SERUM 4.4 MEQ/L (3.5-5.1); SODIUM LEVEL 138 MEQ/L (136-145); TOTAL IRON BINDING CAPACITY 444 UG/DL (250-450); TOTAL PROTEIN 7.8 GM/DL (6.4-8.2); VITAMIN B12 LEVEL 1097 PG/ML
== END ==
LOC: M WUC 08:05
PROVIDERS: ATTEND Physician Assistant
DX: Z98.84 Bariatric surgery status (principal)

== ENCOUNTER → 2019-07-21 | Outpatient (CLI) | payer OTHER, BC ==
[2019-07-21 10:08] LABS: BASO % 0.7 % (0.0-1.0); EOS # 0.1 10^3/uL (0.0-0.5); EOS % 2.5 % (0.0-3.0); HEMATOCRIT 37.2 % (36.0-47.0); HEMOGLOBIN 11.6 g/dl (12.0-15.5); LYMPH # 1.3 10^3/uL (1.5-5.0); LYMPH % 31.4 % (24.0-44.0); MEAN CORPUSCULAR HGB CONC 31.2 g/dl (32.0-36.5); MEAN CORPUSCULAR VOLUME 83.2 fl (80.0-96.0); MONO # 0.7 10^3/uL (0.0-0.8); NEUTROPHILS % 49.2 % (36.0-66.0); PLATELET COUNT, AUTOMATED 240 10^3/uL (150-450); RED BLOOD COUNT 4.47 10^6/uL (4.00-5.40); WHITE BLOOD COUNT 4.1 10^3/uL (4.0-10.0)
[2019-07-21 10:42] LABS: ALBUMIN 3.9 GM/DL (3.2-5.2); ALT/SGPT 30 U/L (12-78); BILIRUBIN,TOTAL 0.4 MG/DL (0.2-1.0); BLOOD UREA NITROGEN 10 MG/DL (7-18); CALCIUM LEVEL 8.9 MG/DL (8.5-10.1); CARBON DIOXIDE LEVEL 30 MEQ/L (21-32); CHLORIDE LEVEL 106 MEQ/L (98-107); CREATININE FOR GFR 0.71 MG/DL (0.55-1.30); FERRITIN 6 NG/ML (8-252); FREE T4 1.11 NG/DL (0.76-1.46); GLOMERULAR FILTRATION RATE > 60.0 (>60); GLUCOSE, FASTING 65 MG/DL (70-100); IRON (FE) 65 UG/DL (50-170); PERCENT SATURATION 14.9 % (13.2-45.0); POTASSIUM SERUM 4.4 MEQ/L (3.5-5.1); SODIUM LEVEL 141 MEQ/L (136-145); TOTAL IRON BINDING CAPACITY 437 UG/DL (250-450); TOTAL PROTEIN 7.4 GM/DL (6.4-8.2); VITAMIN B12 LEVEL 884 PG/ML (247-911)
[2019-07-21 10:47] LABS: TOTAL 25(OH) VITAMIN D 31.5 NG/ML (30.0-100.0)
== END ==
LOC: M PLALAB 09:09
PROVIDERS: ATTEND Family Medicine
DX: E03.9 Hypothyroidism, unspecified (principal); Z98.84 Bariatric surgery status; D50.9 Iron deficiency anemia, unspecified

== ENCOUNTER → 2019-07-21 | Outpatient (REF) | payer OTHER | LOC: M SFHCWAGY 17:01 | PROVIDERS: ATTEND Specialist | DX: Z01.419 Encounter for gynecological examination (general) (routine) without abnormal findings (principal) ==

== ENCOUNTER → 2020-01-24 | Outpatient (CLI) | payer OTHER ==
[~2020-01-24] MED LIST changes: -ASPI81TA85 PO; +ASPI81TA86 PO
[2020-01-24 13:25] LABS: BASO % 0.4 % (0.0-1.0); EOS # 0.1 10^3/uL (0.0-0.5); EOS % 2.1 % (0.0-3.0); HEMATOCRIT 35.1 % (36.0-47.0); HEMOGLOBIN 10.3 g/dl (12.0-15.5); LYMPH # 0.8 10^3/uL (1.5-5.0); LYMPH % 15.7 % (24.0-44.0); MEAN CORPUSCULAR HGB CONC 29.3 g/dl (32.0-36.5); MEAN CORPUSCULAR VOLUME 81.8 fl (80.0-96.0); MONO # 0.6 10^3/uL (0.0-0.8); NEUTROPHILS # 3.7 10^3/uL (1.5-8.5); NEUTROPHILS % 69.4 % (36.0-66.0); PLATELET COUNT, AUTOMATED 245 10^3/uL (150-450); RED BLOOD COUNT 4.29 10^6/uL (4.00-5.40); WHITE BLOOD COUNT 5.3 10^3/uL (4.0-10.0)
[2020-01-24 13:51] LABS: ALBUMIN 3.6 GM/DL (3.2-5.2); ALT/SGPT 28 U/L (12-78); BILIRUBIN,TOTAL 0.3 MG/DL (0.2-1.0); BLOOD UREA NITROGEN 11 MG/DL (7-18); CARBON DIOXIDE LEVEL 28 MEQ/L (21-32); CHLORIDE LEVEL 105 MEQ/L (98-107); CREATININE FOR GFR 0.76 MG/DL (0.55-1.30); FERRITIN 5 NG/ML (8-252); FREE T4 1.36 NG/DL (0.76-1.46); GLOMERULAR FILTRATION RATE > 60.0 (>60); GLUCOSE, FASTING 79 MG/DL (70-100); IRON (FE) 25 UG/DL (50-170); PERCENT SATURATION 6.2 % (13.2-45.0); POTASSIUM SERUM 4.1 MEQ/L (3.5-5.1); SODIUM LEVEL 137 MEQ/L (136-145); TOTAL IRON BINDING CAPACITY 404 UG/DL (250-450); TOTAL PROTEIN 6.9 GM/DL (6.4-8.2)
[2020-01-26 10:07] LABS: TOTAL 25(OH) VITAMIN D 31.5 NG/ML (30.0-100.0)
[2020-01-26 10:08] LABS: VITAMIN B12 LEVEL 1163 PG/ML
== END ==
LOC: M WUC 10:01
PROVIDERS: ATTEND Physician Assistant
DX: E03.9 Hypothyroidism, unspecified (principal); D50.9 Iron deficiency anemia, unspecified; Z98.84 Bariatric surgery status

== ENCOUNTER 2020-05-27 00:21 | Emergency (ER) | payer BC, OTHER ==
[~2020-05-27] VITALS: Ht 165.1 cm; Wt 70.8 kg
[2020-05-27] MEDS ORDERED: ONDANSETRON 4MG/2ML VIAL IV ONE ×2 (00:50→02:35)
[2020-05-27] MEDS ORDERED: MORPHINE 4 MG/ML 1ML VIAL/SYRINGE (J2270) IV ONE ×2 (00:50→02:35)
[2020-05-27] MEDS ORDERED: NS 1,000 ML IV ONE (00:50)
[2020-05-27 01:24] LABS: BASO % 0.3 % (0.0-1.0); EOS % 0.3 % (0.0-3.0); HEMATOCRIT 34.9 % (36.0-47.0); HEMOGLOBIN 10.7 g/dl (12.0-15.5); LYMPH # 0.7 10^3/uL (1.5-5.0); MEAN CORPUSCULAR HEMOGLOBIN 24.3 pg (27.0-33.0); MEAN CORPUSCULAR HGB CONC 30.7 g/dl (32.0-36.5); MEAN CORPUSCULAR VOLUME 79.1 fl (80.0-96.0); MONO # 0.5 10^3/uL (0.0-0.8); MONO % 7.3 % (2.0-8.0); NEUTROPHILS # 6.1 10^3/uL (1.5-8.5); NEUTROPHILS % 81.8 % (36.0-66.0); PLATELET COUNT, AUTOMATED 292 10^3/uL (150-450); RED BLOOD COUNT 4.41 10^6/uL (4.00-5.40); WHITE BLOOD COUNT 7.4 10^3/uL (4.0-10.0)
[2020-05-27 01:55] LABS: HCG, SERUM QUALITATIVE NEGATIVE (NEGATIVE)
[2020-05-27 02:05] LABS: ALT/SGPT 40 U/L (12-78); BILIRUBIN,DIRECT 0.1 MG/DL (0.0-0.2); BILIRUBIN,TOTAL 0.3 MG/DL (0.2-1.0); BLOOD UREA NITROGEN 18 MG/DL (7-18); CALCIUM LEVEL 9.3 MG/DL (8.5-10.1); CARBON DIOXIDE LEVEL 29 MEQ/L (21-32); CHLORIDE LEVEL 104 MEQ/L (98-107); CREATININE FOR GFR 0.74 MG/DL (0.55-1.30); GLOMERULAR FILTRATION RATE > 60.0 (>60); GLUCOSE, FASTING 120 MG/DL (70-100); LIPASE 316 U/L (73-393); POTASSIUM SERUM 4.4 MEQ/L (3.5-5.1); SODIUM LEVEL 137 MEQ/L (136-145); TOTAL PROTEIN 7.7 GM/DL (6.4-8.2)
[2020-05-27] MEDS ORDERED: GASTROGRAFIN SOLUTION 30ML (Q9963) As Ordered ONE (02:13)
[2020-05-27] MEDS ORDERED: ISOVUE-370 76% 100ML VIAL As Ordered ONE (02:39)
[2020-05-27] MEDS: GASTROGRAFIN SOLUTION 30ML PO SCH (03:14)
--- NOTE | 2020-05-27 03:45 | REPVR ---
PROCEDURE INFORMATION: Exam: CT Abdomen And Pelvis With Contrast Exam date and time: 05/27/2020 1:57 AM Age: 35 years old Clinical indication: Abdominal pain; Localized; Right upper quadrant (ruq); Additional info: Epigastric/ruq pain TECHNIQUE: Imaging protocol: Computed tomography of the abdomen and pelvis with contrast. Radiation optimization: All CT scans at this facility use at least one of these dose optimization techniques: automated exposure control; mA and/or kV adjustment per patient size (includes targeted exams where dose is matched to clinical indication); or iterative reconstruction. Contrast material: ISO; Contrast volume: 100 ml; Contrast route: INTRAVENOUS (IV); Other contrast: Oral, ggraphin, 600; COMPARISON: 1. Obs. Limited, VERONICA US 2018-03-21 12:53 2. US OBS FOLL UP OR REPEAT EACH GES 2018-01-21 18:07 FINDINGS: Liver: Normal. No mass. Gallbladder and bile ducts: Normal. No calcified stones. No ductal dilation. Pancreas: Normal. No ductal dilation. Spleen: Normal. No splenomegaly. Adrenal glands: Normal. No mass. Kidneys and ureters: Normal. No hydronephrosis. Stomach and bowel: Unremarkable. No obstruction. No mucosal thickening. Appendix: No evidence of appendicitis. Intraperitoneal space: Small amount of free fluid in the pelvis, most likely physiological pelvic intraperitoneal fluid as a result of patient's premenopausal reproductive status. Vasculature: Unremarkable. No abdominal aortic aneurysm. Lymph nodes: Unremarkable. No enlarged lymph nodes. Urinary bladder: Unremarkable as visualized. Reproductive: Retroverted uterus. Bones/joints: Unremarkable. No acute fracture. Soft tissues: Unremarkable. IMPRESSION: No acute findings. Electronically signed by: Regulo Arana On 05/27/2020 03:46:05 AM
[2020-05-27] MEDS ORDERED: ZOFR4TAB16 PO (03:55)
[2020-05-27 04:11] VITALS: BP 105/62
== END 2020-05-27 04:58 | disposition home or self-care (01) ==
LOC: M ED 00:21
DX: R10.30 Lower abdominal pain, unspecified (principal); R11.0 Nausea; E07.9 Disorder of thyroid, unspecified; Z98.84 Bariatric surgery status; Z88.0 Allergy status to penicillin; Z88.1 Allergy status to other antibiotic agents; Z88.6 Allergy status to analgesic agent; Z79.890 Hormone replacement therapy; Z79.899 Other long term (current) drug therapy
CPT/HCPCS: 36415; 74177; 80048; 80076; 83690; 84703; 85025; 93041; 96361; 96374; 96375; 96376; 99284; J2270; J2405; Q9967

== ENCOUNTER → 2020-07-19 | Outpatient (CLI) | payer OTHER ==
[~2020-07-19] MED LIST changes: +ZOFR4TAB16 PO
[2020-07-19 16:12] LABS: HEMATOCRIT 34.8 % (36.0-47.0); HEMOGLOBIN 10.6 g/dl (12.0-15.5); MEAN CORPUSCULAR HEMOGLOBIN 23.9 pg (27.0-33.0); MEAN CORPUSCULAR HGB CONC 30.5 g/dl (32.0-36.5); MEAN CORPUSCULAR VOLUME 78.4 fl (80.0-96.0); PLATELET COUNT, AUTOMATED 273 10^3/uL (150-450); RED BLOOD COUNT 4.44 10^6/uL (4.00-5.40); WHITE BLOOD COUNT 6.1 10^3/uL (4.0-10.0)
[2020-07-19 16:54] LABS: ALBUMIN 3.8 GM/DL (3.2-5.2); ALT/SGPT 26 U/L (12-78); BILIRUBIN,TOTAL 0.3 MG/DL (0.2-1.0); BLOOD UREA NITROGEN 14 MG/DL (7-18); CALCIUM LEVEL 9.1 MG/DL (8.5-10.1); CARBON DIOXIDE LEVEL 30 MEQ/L (21-32); CHLORIDE LEVEL 103 MEQ/L (98-107); CREATININE FOR GFR 0.58 MG/DL (0.55-1.30); GLOMERULAR FILTRATION RATE > 60.0 (>60); GLUCOSE, FASTING 85 MG/DL (70-100); POTASSIUM SERUM 4.4 MEQ/L (3.5-5.1); SODIUM LEVEL 138 MEQ/L (136-145); TOTAL PROTEIN 7.4 GM/DL (6.4-8.2)
== END ==
LOC: M WUC 14:50
DX: Z01.812 Encounter for preprocedural laboratory examination (principal)

== ENCOUNTER → 2020-09-28 | Outpatient (CLI) | payer OTHER ==
[2020-09-28 13:11] LABS: FREE T4 0.75 NG/DL (0.76-1.46)
[2020-09-28 13:12] LABS: TOTAL 25(OH) VITAMIN D 38.4 NG/ML (30.0-100.0)
[2020-09-28 13:13] LABS: VITAMIN B12 LEVEL 1102 PG/ML
[2020-09-28 13:14] LABS: FOLATE 11.9 NG/ML
[2020-09-28 13:52] LABS: HIV 1&2 SCREEN CENTAUR NEGATIVE (NEGATIVE)
[2020-09-28 14:19] LABS: GC DNA AMPLIFICATION NEGATIVE (NEGATIVE)
== END ==
LOC: M WUC 09:41
PROVIDERS: ATTEND Physician Assistant
DX: Z00.00 Encounter for general adult medical examination without abnormal findings (principal); Z11.3 Encounter for screening for infections with a predominantly sexual mode of transmission; E03.9 Hypothyroidism, unspecified; Z98.84 Bariatric surgery status

== ENCOUNTER → 2021-02-07 | Outpatient (CLI) | payer OTHER ==
[2021-02-07 13:50] LABS: BASO % 0.9 % (0.0-1.0); EOS # 0.1 10^3/uL (0.0-0.5); EOS % 1.7 % (0.0-3.0); HEMATOCRIT 32.2 % (36.0-47.0); HEMOGLOBIN 9.5 g/dl (12.0-15.5); LYMPH # 1.1 10^3/uL (1.5-5.0); MEAN CORPUSCULAR HEMOGLOBIN 21.2 pg (27.0-33.0); MEAN CORPUSCULAR HGB CONC 29.5 g/dl (32.0-36.5); MEAN CORPUSCULAR VOLUME 71.9 fl (80.0-96.0); MONO # 0.5 10^3/uL (0.0-0.8); MONO % 14.2 % (2.0-8.0); NEUTROPHILS # 1.8 10^3/uL (1.5-8.5); NEUTROPHILS % 51.9 % (36.0-66.0); PLATELET COUNT, AUTOMATED 332 10^3/uL (150-450); RED BLOOD COUNT 4.48 10^6/uL (4.00-5.40); WHITE BLOOD COUNT 3.5 10^3/uL (4.0-10.0)
[2021-02-07 14:33] LABS: ALBUMIN 3.7 GM/DL (3.2-5.2); ALT/SGPT 38 U/L (12-78); BILIRUBIN,TOTAL 0.3 MG/DL (0.2-1.0); BLOOD UREA NITROGEN 12 MG/DL (7-18); CALCIUM LEVEL 9.1 MG/DL (8.5-10.1); CARBON DIOXIDE LEVEL 30 MEQ/L (21-32); CHLORIDE LEVEL 106 MEQ/L (98-107); CREATININE FOR GFR 0.71 MG/DL (0.55-1.30); FERRITIN 4 NG/ML (8-252); FOLATE 14.4 NG/ML; GLOMERULAR FILTRATION RATE > 60.0 (>60); GLUCOSE, FASTING 82 MG/DL (70-100); IRON (FE) 21 UG/DL (50-170); PERCENT SATURATION 4.6 % (13.2-45.0); POTASSIUM SERUM 4.1 MEQ/L (3.5-5.1); SODIUM LEVEL 140 MEQ/L (136-145); TOTAL IRON BINDING CAPACITY 457 UG/DL (250-450); TOTAL PROTEIN 7.4 GM/DL (6.4-8.2); VITAMIN B12 LEVEL 1137 PG/ML
[2021-02-07 15:11] LABS: HIV 1&2 SCREEN CENTAUR NEGATIVE (NEGATIVE)
[2021-02-07 15:30] LABS: GC DNA AMPLIFICATION NEGATIVE (NEGATIVE)
== END ==
LOC: M WUC 09:35
PROVIDERS: ATTEND Physician Assistant
DX: Z98.84 Bariatric surgery status (principal); E03.9 Hypothyroidism, unspecified; D50.9 Iron deficiency anemia, unspecified; Z11.3 Encounter for screening for infections with a predominantly sexual mode of transmission

== ENCOUNTER 2021-03-01 11:14 | Outpatient (CLI) | payer BC, OTHER ==
[~2021-03-01] VITALS: Ht 165.1 cm; Wt 70.5 kg
[2021-03-01] MEDS ORDERED: FERRIC CARBOXYMALTOSE INJ 750 MG, VIAL MATE ADAPTER 1 EACH in NS 250 ML IV ONE (11:30)
[2021-03-01 11:45] VITALS: BP 133/65
[2021-03-01 13:00] VITALS: BP 102/56
== END 2021-03-01 13:05 | disposition home or self-care (01) ==
LOC: M INFU 11:14
PROVIDERS: ATTEND Family Medicine
DX: D50.9 Iron deficiency anemia, unspecified (principal); Z88.0 Allergy status to penicillin; Z88.1 Allergy status to other antibiotic agents; Z88.6 Allergy status to analgesic agent
CPT/HCPCS: 96365; J1439

== ENCOUNTER 2021-03-08 06:48 | Outpatient (CLI) | payer BC, OTHER ==
[~2021-03-08] VITALS: Ht 165.1 cm; Wt 70.4 kg
[~2021-03-08 06:48] MED LIST changes: +ALPHA PROTEINASE INHIBITOR IV ONE; +FERRIC CARBOXYMALTOSE INJ 750 MG, VIAL MATE ADAPTER 1 EACH in NS 250 ML IV ONE; +SODIUM CHLORIDE 0.9% INJ 10 ML SYR IV SCH
[2021-03-08] MEDS ORDERED: NS 1,000 ML IV SCH (07:00)
[2021-03-08] MEDS ORDERED: FERRIC CARBOXYMALTOSE INJ 750 MG, VIAL MATE ADAPTER 1 EACH in NS 250 ML IV ONE (07:00)
[2021-03-08 07:14] VITALS: BP 120/58
[2021-03-08 08:27] VITALS: BP 108/63
== END 2021-03-08 08:30 | disposition home or self-care (01) ==
LOC: M INFU 06:48
PROVIDERS: ATTEND Family Medicine
DX: D50.9 Iron deficiency anemia, unspecified (principal); Z88.0 Allergy status to penicillin; Z88.1 Allergy status to other antibiotic agents; Z88.6 Allergy status to analgesic agent
CPT/HCPCS: 96365; J1439

== ENCOUNTER → 2021-06-16 | Outpatient (CLI) | payer BC, OTHER ==
[~2021-06-16] MED LIST changes: -ALPHA PROTEINASE INHIBITOR IV ONE; -FERRIC CARBOXYMALTOSE INJ 750 MG, VIAL MATE ADAPTER 1 EACH in NS 250 ML IV ONE; -SODIUM CHLORIDE 0.9% INJ 10 ML SYR IV SCH
[2021-06-16 16:10] LABS: BASO % 0.4 % (0.0-1.0); EOS # 0.1 10^3/uL (0.0-0.5); HEMATOCRIT 41.1 % (36.0-47.0); HEMOGLOBIN 13.1 g/dl (12.0-15.5); LYMPH # 1.3 10^3/uL (1.5-5.0); LYMPH % 16.1 % (24.0-44.0); MEAN CORPUSCULAR HEMOGLOBIN 29.3 pg (27.0-33.0); MEAN CORPUSCULAR HGB CONC 31.9 g/dl (32.0-36.5); MEAN CORPUSCULAR VOLUME 91.9 fl (80.0-96.0); MONO # 0.8 10^3/uL (0.0-0.8); MONO % 10.2 % (2.0-8.0); NEUTROPHILS # 5.6 10^3/uL (1.5-8.5); PLATELET COUNT, AUTOMATED 293 10^3/uL (150-450); RED BLOOD COUNT 4.47 10^6/uL (4.00-5.40); WHITE BLOOD COUNT 7.8 10^3/uL (4.0-10.0)
[2021-06-16 16:57] LABS: ALBUMIN 3.8 GM/DL (3.2-5.2); ALT/SGPT 46 U/L (12-78); BILIRUBIN,TOTAL 0.4 MG/DL (0.2-1.0); BLOOD UREA NITROGEN 15 MG/DL (7-18); CALCIUM LEVEL 9.1 MG/DL (8.5-10.1); CARBON DIOXIDE LEVEL 29 MEQ/L (21-32); CHLORIDE LEVEL 105 MEQ/L (98-107); CREATININE FOR GFR 0.93 MG/DL (0.55-1.30); FERRITIN 70 NG/ML (8-252); FREE T4 0.75 NG/DL (0.76-1.46); GLOMERULAR FILTRATION RATE > 60.0 (>60); GLUCOSE, FASTING 58 MG/DL (70-100); IRON (FE) 101 UG/DL (50-170); PERCENT SATURATION 31.9 % (13.2-45.0); POTASSIUM SERUM 4.4 MEQ/L (3.5-5.1); SODIUM LEVEL 139 MEQ/L (136-145); TOTAL IRON BINDING CAPACITY 317 UG/DL (250-450); TOTAL PROTEIN 7.2 GM/DL (6.4-8.2)
[2021-06-16 17:09] LABS: TOTAL 25(OH) VITAMIN D 25.3 NG/ML (30.0-100.0)
== END ==
LOC: M WUC 11:03
PROVIDERS: ATTEND Physician Assistant
DX: D50.9 Iron deficiency anemia, unspecified (principal)

== ENCOUNTER → 2021-08-26 | Outpatient (CLI) | payer BC, OTHER ==
[2021-08-26 14:34] LABS: ALBUMIN 3.5 GM/DL (3.2-5.2); ALT/SGPT 16 U/L (12-78); BILIRUBIN,TOTAL 0.3 MG/DL (0.2-1.0); BLOOD UREA NITROGEN 11 MG/DL (7-18); CALCIUM LEVEL 8.5 MG/DL (8.5-10.1); CARBON DIOXIDE LEVEL 33 MEQ/L (21-32); CHLORIDE LEVEL 108 MEQ/L (98-107); FREE T4 1.22 NG/DL (0.76-1.46); GLOMERULAR FILTRATION RATE > 60.0 (>60); GLUCOSE, FASTING 70 MG/DL (70-100); POTASSIUM SERUM 4.3 MEQ/L (3.5-5.1); SODIUM LEVEL 141 MEQ/L (136-145); TOTAL PROTEIN 7.3 GM/DL (6.4-8.2)
[2021-08-26 14:35] LABS: TOTAL 25(OH) VITAMIN D 46.2 NG/ML (30.0-100.0)
== END ==
LOC: M WUC 08:54
PROVIDERS: ATTEND Physician Assistant
DX: E03.9 Hypothyroidism, unspecified (principal); Z98.84 Bariatric surgery status; D50.9 Iron deficiency anemia, unspecified

== ENCOUNTER → 2022-05-16 | Outpatient (CLI) | payer BC ==
[2022-05-16 09:42] LABS: BASO % 0.7 % (0.0-1.0); EOS # 0.2 10^3/uL (0.0-0.5); EOS % 3.3 % (0.0-3.0); HEMATOCRIT 37.5 % (36.0-47.0); HEMOGLOBIN 12.2 g/dl (12.0-15.5); LYMPH # 1.1 10^3/uL (1.5-5.0); LYMPH % 24.2 % (24.0-44.0); MEAN CORPUSCULAR HEMOGLOBIN 29.7 pg (27.0-33.0); MEAN CORPUSCULAR HGB CONC 32.5 g/dl (32.0-36.5); MEAN CORPUSCULAR VOLUME 91.2 fl (80.0-96.0); MONO # 0.7 10^3/uL (0.0-0.8); MONO % 14.5 % (2.0-8.0); NEUTROPHILS # 2.6 10^3/uL (1.5-8.5); NEUTROPHILS % 57.1 % (36.0-66.0); PLATELET COUNT, AUTOMATED 219 10^3/uL (150-450); RED BLOOD COUNT 4.11 10^6/uL (4.00-5.40); WHITE BLOOD COUNT 4.6 10^3/uL (4.0-10.0)
[2022-05-16 10:14] LABS: TOTAL IRON BINDING CAPACITY 372 UG/DL (250-425)
[2022-05-16 10:15] LABS: ALBUMIN 3.9 G/DL (3.2-5.2); ALKALINE PHOSPHATASE 53 U/L (46-116); ALT/SGPT 34 U/L (7.0-40); AST/SGOT 38 U/L (<34); BILIRUBIN,TOTAL 0.6 MG/DL (0.3-1.2); BLOOD UREA NITROGEN 15 MG/DL (9-23); CALCIUM LEVEL 8.9 MG/DL (8.5-10.1); CARBON DIOXIDE LEVEL 30 MMOL/L (20-31); CHLORIDE LEVEL 104 MMOL/L (98-107); CREATININE FOR GFR 0.69 MG/DL (0.55-1.30); GLOMERULAR FILTRATION RATE > 60.0 (>60); GLUCOSE, FASTING 59 MG/DL (60-100); IRON (FE) 128 UG/DL (50-170); PERCENT SATURATION 34.4 % (13.2-45.0); POTASSIUM SERUM 4.3 MMOL/L (3.5-5.1); SODIUM LEVEL 138 MMOL/L (136-145)
[2022-05-16 10:19] LABS: THYROID STIMULATING HORMONE 104.769 uIU/ML (0.55-4.78)
[2022-05-16 10:20] LABS: FERRITIN 7.5 NG/ML (7.3-270.7); TOTAL 25(OH) VITAMIN D 21.2 NG/ML (20.0-100.0)
[2022-05-16 10:21] LABS: FOLATE 16.09 NG/ML (>5.4); VITAMIN B12 LEVEL 577 PG/ML (211-911)
[2022-05-16 10:22] LABS: FREE T4 0.54 NG/DL (0.89-1.76)
== END ==
LOC: M WUC 08:13
PROVIDERS: ATTEND Physician Assistant
DX: E03.9 Hypothyroidism, unspecified (principal); D50.9 Iron deficiency anemia, unspecified; E55.9 Vitamin D deficiency, unspecified; Z98.84 Bariatric surgery status

== ENCOUNTER → 2022-07-07 | Outpatient (CLI) | payer BC | LOC: M WHC 08:12 | PROVIDERS: ATTEND Physician Assistant | DX: R10.10 Upper abdominal pain, unspecified (principal) ==

== ENCOUNTER → 2022-07-10 | Outpatient (CLI) | payer BC ==
[2022-07-10 11:47] LABS: THYROID STIMULATING HORMONE 13.426 uIU/ML (0.55-4.78)
[2022-07-10 11:49] LABS: FREE T4 0.97 NG/DL (0.89-1.76)
== END ==
LOC: M WUC 08:16
PROVIDERS: ATTEND Physician Assistant
DX: E03.9 Hypothyroidism, unspecified (principal)

== ENCOUNTER → 2022-09-13 | Outpatient (CLI) | payer BC ==
[2022-09-13 18:33] LABS: FREE T4 1.34 NG/DL (0.89-1.76)
[2022-09-13 18:34] LABS: THYROID STIMULATING HORMONE 0.651 uIU/ML (0.55-4.78)
== END ==
LOC: M WUC 12:55
PROVIDERS: ATTEND Internal Medicine Endocrinology, Diabetes & Metabolism
DX: E03.9 Hypothyroidism, unspecified (principal); E28.2 Polycystic ovarian syndrome

== ENCOUNTER → 2023-02-21 | Outpatient (REF) | payer BC | LOC: M SFHCWAGY 13:29 | PROVIDERS: ATTEND Specialist | DX: Z12.4 Encounter for screening for malignant neoplasm of cervix (principal) ==

== ENCOUNTER 2024-06-20 07:04 | Outpatient (CLI) | payer OTHER ==
[~2024-06-20] VITALS: Ht 165.1 cm; Wt 70.5 kg
[~2024-06-20 07:04] MED LIST changes: +ALBUTEROL SULFATE 2.5MG/0.5ML INH CONCENTRATE NEB SOLN INH PRN; +EPINEPHrine INJ 1 MG/ML 1ML AMP IM PRN; +diphenhydrAMINE 50MG/ML VIAL IV PRN; +methylPREDNISolone 125MG 2ML VIAL IV PRN
[2024-06-20 07:10] VITALS: BP 124/59; O2SAT 100
[2024-06-20] MEDS: IRON SUCROSE 500 MG in NS 250 ML OVER 4 HRS IV ONE (08:10)
[2024-06-20 09:00] VITALS: BP 129/74; O2SAT 100
[2024-06-20 10:00] VITALS: BP 119/81; O2SAT 100
[2024-06-20 12:08] VITALS: BP 114/66; O2SAT 97
== END 2024-06-20 12:10 | disposition home or self-care (01) ==
LOC: M INFU 07:04
PROVIDERS: ATTEND Physician Assistant
DX: D50.9 Iron deficiency anemia, unspecified (principal); Z88.6 Allergy status to analgesic agent; Z88.0 Allergy status to penicillin; Z88.1 Allergy status to other antibiotic agents
CPT/HCPCS: 96365; 96366; J1756

== ENCOUNTER → 2025-03-06 | Outpatient (CLI) | payer OTHER ==
[~2025-03-06] MED LIST changes: -ALBUTEROL SULFATE 2.5MG/0.5ML INH CONCENTRATE NEB SOLN INH PRN; -EPINEPHrine INJ 1 MG/ML 1ML AMP IM PRN; -diphenhydrAMINE 50MG/ML VIAL IV PRN; -methylPREDNISolone 125MG 2ML VIAL IV PRN
== END ==
LOC: M SOG 07:44
PROVIDERS: ATTEND Physician Assistant
DX: M25.552 Pain in left hip (principal); M25.551 Pain in right hip